=== PATIENT | female | born 1995 | race Caucasian/White ===

== ENCOUNTER 2017-08-06 12:54 | Emergency (ER) | payer SELFPAY ==
[2017-08-06 13:00] VITALS: BP 120/70
[2017-08-06] MEDS ORDERED: CLINDAMYCIN HCL 150 MG CAPSULE PO ONE (13:13)
--- NOTE | 2017-08-06 13:18 | ER Document Report ---
ED General - General Chief Complaint: Abscess Stated Complaint: INSECT BITE Time Seen by Provider: 08/06/17 13:06 Notes: 22-year-old female here with complaints of abscess cellulitis to left forearm that started approximately 1 week ago. [place] and incision/drainage was performed with expression of purulent material. They placed her on Bactrim and the symptoms have improved significantly however she is here today because she still has some drainage on the bandage when she changes it. The redness has improved and there is only minimal redness around the area of I&D. She denies any fevers chills MRSA history. She finished the Bactrim and has not skipped any doses. - Related Data Allergies/Adverse Reactions: No Known Allergies Allergy (Unverified 08/06/17 13:05) Past Medical History - Social History Smoking Status: Current Some Day Smoker Chew tobacco use (# tins/day): No Frequency of alcohol use: None Drug Abuse: None Family History: Reviewed & Not Pertinent Patient has suicidal ideation: No Patient has homicidal ideation: No Renal/ Medical History: Denies: Hx Peritoneal Dialysis Review of Systems - Review of Systems Notes: See history of present illness for pertinent positive review of systems; otherwise all review of systems have been reviewed and are negative Physical Exam - Vital signs Vitals: Temp Pulse Resp BP Pulse Ox 99.3 F 83 20 120/70 99 08/06/17 12:58 08/06/17 12:58 08/06/17 12:58 08/06/17 12:58 08/06/17 12:58 - Notes Notes: PHYSICAL EXAMINATION: GENERAL: Well-appearing and in no acute distress. HEAD: Atraumatic, normocephalic. EYES: Pupils equal round and reactive to light, extraocular movements intact, sclera anicteric, conjunctiva are normal. ENT: nares patent, oropharynx clear without exudates. Moist mucous membranes. NECK: Normal range of motion, supple without lymphadenopathy LUNGS: CTAB and equal. No wheezes rales or rhonchi. HEART: Regular rate and rhythm without murmurs ABDOMEN: Soft, no tenderness. No facial grimacing/wincing upon palpation. No guarding, no rebound. EXTREMITIES: Normal range of motion, no pitting edema. No cyanosis. To the left ventral forearm, there is a 1 cm incision (status post incision/drainage) with minimal surrounding erythema but no induration fluctuance however there is some minimal yellow drainage NEUROLOGICAL: Cranial nerves grossly intact. Normal sensory/motor exams. PSYCH: Normal mood, normal affect. SKIN: Warm, Dry, normal turgor, no rashes or lesions noted Course - Re-evaluation Re-evalutation: 08/06/17 13:16 MEDICAL DECISION MAKING: Overall the area looks well however she has some minimal continued drainage I will place her on 5 day course of clindamycin and instructed on use of warm compresses She does not have PCP so discussed [facility] or other [facility]CP Patient understands and agrees to the plan of care - Vital Signs Vital signs: Temp Pulse Resp BP Pulse Ox 99.3 F 83 20 120/70 99 08/06/17 12:58 08/06/17 12:58 08/06/17 12:58 08/06/17 12:58 08/06/17 12:58 Discharge - Discharge Clinical Impression: Abscess Condition: Good Disposition: HOME, SELF-CARE Instructions: Abscess ([facility]), Post Incision and Drainage Additional Instructions: You were seen in the emergency department at [facility]. Finish the antibiotics and do not skip any doses. Use warm compresses 3-5 times daily for about 30-60 minutes each time. Please followup with your primary physician in the next few days for further management/evaluation. Please return to the emergency department for worsening of symptoms or any symptom that you deem to be concerning or life-threatening. Thank you for allowing us to be part of your care. This documentation serves as your work/school note for your ED visit today. Prescriptions: Clindamycin HCl 300 mg PO TID #15 capsule
== END 2017-08-06 13:22 | disposition home or self-care (01) ==
LOC: ER 12:54
DX: L02.414 Cutaneous abscess of left upper limb (principal); L03.114 Cellulitis of left upper limb; F17.200 Nicotine dependence, unspecified, uncomplicated; Z98.890 Other specified postprocedural states
CPT/HCPCS: 99282

== ENCOUNTER 2017-11-06 04:44 | Emergency (ER) | payer SELFPAY ==
[2017-11-06 04:50] VITALS: BP 127/68
--- NOTE | 2017-11-06 05:15 | ER Document Report ---
ED General - General Chief Complaint: Abscess Stated Complaint: POSSIBLE INSECT BITE Time Seen by Provider: 11/06/17 05:12 Notes: 22-year-old female presents with painful lesion to the left flank/lower chest wall that she cyst suspects is a spider bite, began 2 days ago after sleeping in a foreign bed, apparently another family member was bitten at the same bed. She says it super painful but she has not tried any medications. It has redness surrounding which is not changed. No fevers or chills. History of what sounds like an abscess. TRAVEL OUTSIDE OF THE [place] IN LAST 30 DAYS: No - Related Data Allergies/Adverse Reactions: No Known Allergies Allergy (Unverified 08/06/17 13:05) Past Medical History - General Information source: Patient - Social History Smoking Status: Unknown if Ever Smoked Family History: Reviewed & Not Pertinent Renal/ Medical History: Denies: Hx Peritoneal Dialysis Review of Systems - Review of Systems Notes: REVIEW OF SYSTEMS GEN: Denies fever, chills, weight loss ENT: Denies sore throat, nasal discharge, ear pain EYES: Denies blurry vision, eye pain, discharge CV: Denies chest pain, palpitations, edema RESP: Denies cough, shortness of breath, wheezing GI: Denies abdominal pain, nausea, vomiting, diarrhea MSK: Denies joint pain/swelling, edema, SKIN: Skin lesion LYMPH: Denies swollen glands/lymph nodes NEURO: Denies headache, focal weakness or numbness, dizziness PSYCH: Denies depression, suicidal or homicidal ideation PHYSICAL EXAMINATION General: No acute distress, well-nourished Head: Atraumatic, normocephalic ENT: Mouth normal, oropharynx moist, no exudates or tonsillar enlargement Eyes: Conjunctiva normal, pupils equal, lids normal Neck: No JVD, supple, no guarding CVS: Normal rate, regular rhythm, no murmurs Resp: No resp distress, equal and normal breath sounds bilaterally GI: Nondistended, soft, no tenderness to palpation, no rebound or guarding Ext: No deformities, no edema, normal range of motion in upper and lower ext Back: No CVA or midline TTP Skin: No rash, warm. Solitary erythematous lesion with very small purulent/ necrotic head about 3 mm across, minimal fluctuance, no drainage mild tenderness , in the left upper quadrant/left flank skin. Lymphatic: No lymphadeopathy noted Neuro: Awake, alert. Face symmetric. GCS 15. Physical Exam - Vital signs Vitals: Temp Pulse Resp BP Pulse Ox 97.8 F 69 16 127/68 H 100 11/06/17 04:44 11/06/17 04:44 11/06/17 04:44 11/06/17 04:44 11/06/17 04:44 Course - Re-evaluation Re-evalutation: 11/06/17 05:18 Solitary skin lesion either represents small necrotic spider bite without apparent systemic involvement or small abscess which is too small to drain at this time. Offered exploratory needle drainage but the patient would rather try antibiotics and pain medicine at home. Bactrim and Motrin were prescribed. Lesion was outlined. Patient will return for any changes. I have discussed with the patient there likely diagnosis, aftercare plan, follow-up plans and my usual and customary return precautions. They verbalized understanding of this. - Vital Signs Vital signs: Temp Pulse Resp BP Pulse Ox 97.8 F 69 16 127/68 H 100 11/06/17 04:44 11/06/17 04:44 11/06/17 04:44 11/06/17 04:44 11/06/17 04:44 Discharge - Discharge Clinical Impression: Spider bite Qualifiers: Encounter type: initial encounter Injury intent: accidental or unintentional Qualified Code(s): T63.301A - Toxic effect of unspecified spider venom, accidental (unintentional), initial encounter Condition: Good Disposition: HOME, SELF-CARE Instructions: Abscess ([facility]), MRSA Cellulitis ([facility]), Trimethoprim-Sulfa ([facility]) Prescriptions: Ibuprofen 400 mg PO Q6HP PRN #30 tablet PRN Reason: Sulfamethoxazole/Trimethoprim [Septra-Ds 800-160 mg Tablet] 1 tab PO BID #20 tablet Referrals: [facility] [Provider Group] - Follow up as needed
== END 2017-11-06 05:30 | disposition home or self-care (01) ==
LOC: ER 04:44
DX: T63.301A Toxic effect of unspecified spider venom, accidental (unintentional), initial encounter (principal); R10.9 Unspecified abdominal pain; X58.XXXA Exposure to other specified factors, initial encounter
CPT/HCPCS: 99281